=== PATIENT | female | born 1990 | race Caucasian/White ===

== ENCOUNTER 2022-07-24 15:11 | Emergency (ER) | payer OTHER ==
[~2022-07-24] VITALS: Ht 157.5 cm; Wt 81.6 kg
[~2022-07-24 15:11] MED LIST: PRENATAL1 TAB
[2022-07-24] MEDS ORDERED: CEPHALEXIN500 MG PO (20:36)
== END 2022-07-24 21:54 | disposition home or self-care (01) ==
LOC: ER 15:11
DX: O23.42 Unspecified infection of urinary tract in pregnancy, second trimester (principal); N39.0 Urinary tract infection, site not specified; B96.20 Unspecified Escherichia coli [E. coli] as the cause of diseases classified elsewhere; Z3A.18 18 weeks gestation of pregnancy; O34.12 Maternal care for benign tumor of corpus uteri, second trimester; Z20.822 Contact with and (suspected) exposure to COVID-19

== ENCOUNTER 2022-08-30 03:41 | Outpatient (CLI) | payer OTHER ==
[~2022-08-30 03:41] MED LIST changes: +CEPHALEXIN500 MG PO
== END 2022-08-30 10:51 | disposition home or self-care (01) ==
LOC: OBS/DEL 03:41
PROVIDERS: ATTEND Obstetrics & Gynecology
DX: O34.12 Maternal care for benign tumor of corpus uteri, second trimester (principal); Z3A.23 23 weeks gestation of pregnancy

== ENCOUNTER 2024-05-19 09:34 | Outpatient (CLI) | payer OTHER | END 2024-05-19 09:53 | disposition home or self-care (01) | LOC: SONOGRAMA 09:34 | PROVIDERS: ATTEND Obstetrics & Gynecology | DX: D25.9 Leiomyoma of uterus, unspecified (principal) ==

== ENCOUNTER 2024-12-02 08:30 | Inpatient (IN) | payer OTHER ==
[~2024-12-02] VITALS: Ht 160 cm; Wt 74.4 kg
[2024-12-02 10:16] VITALS: BP 100/60
[2024-12-02 10:21] VITALS: BP 109/73
[2024-12-02 10:39] LABS: URINE APPEARANCE Clear; URINE BILIRRUBIN Negative (NEGATIVE); URINE BLOOD Negative; URINE COLOR Yellow; URINE GLUCOSE Negative (NEGATIVE); URINE KETONE Negative (NEGATIVE); URINE LEUKOCYTE Moderate; URINE NITRATE Negative; URINE PROTEIN Negative (NEGATIVE); URINE UROBILINOGEN 0.2 E.U./dl
[2024-12-02 10:42] LABS: BASO % 0.6 % (0.1-1.2); EOS # 0.12 (0.04-0.54); EOS % 2.4 % (0.7-7.0); LYMPH # 1.41 (1.18-3.74); LYMPH % 28.5 % (19.3-53.1); MEAN PLATELET VOLUME 12.90 fl (9.4-12.4); MONO # 0.33 (0.24-0.82); MONO % 6.7 % (4.7-12.5); NEUT # 3.05 (1.56-6.13); NEUT % 61.6 % (34.0-71.1); RED CELL DISTRIBUTION WIDTH 13.8 % (11.6-14.4)
[2024-12-02 10:43] LABS: URINE BACTERIA 196.8 uL (0.0-1933); URINE EPITHELIAL CELLS 13.9 uL (0.0-38.8); URINE WBC 27.3 uL (0.0-23.2)
[2024-12-02 10:47] LABS: URINE CAST 0.00 uL (0.0-1.40); URINE RBC 1.1 uL (0.0-20.8)
[2024-12-02 11:11] LABS: INR 1.02
[2024-12-02 11:15] LABS: ALT/SGPT 26 U/L (12-78); AST/SGOT 16 U/L (15-37); BILIRUBIN TOTAL 0.43 mg/dL (0.3-1.2); BUN CREA RATIO 16 (7.0-25.0); CREATININE SERUM 0.56 mg/dL (0.55-1.02); GFR 123.19; GLOBULINA 4.1 G/DL (2.4-3.5); GLUCOSE FASTING 93 mg/dL (65-100); OSMOLALITY SERUM 280 MOSM/KG (275-295)
[2024-12-02 11:16] LABS: HCG QUANTITATIVE < 1 mUI/mL (1-3)
[2024-12-02 11:41] LABS: RH POSITIVE
[2024-12-08] MEDS ORDERED: THROMBIN,HU/FIBRINOGEN/CALCIUM 10 ML SYRINGE TOP ONE (13:00)
[2024-12-08] MEDS ORDERED: CEFAZOLIN SODIUM 1,000 MG VIAL IV ONE (13:00)
[2024-12-08] MEDS ORDERED: VASOPRESSIN 20 UNITS/ML VIAL IJ ONE (13:00)
[2024-12-08] MEDS ORDERED: VISTASEAL DUAL APPICATOR 1 EACH APPL TOP ONE (13:00)
[2024-12-08] MEDS ORDERED: TRANEXAMIC ACID 100MG/1ML (1000MG) AMPUL IV ONE (13:00)
[2024-12-08] MEDS ORDERED: METHYLENE BLUE 10MG/ML 10 ML AMPUL IV ONE (15:30)
[2024-12-08] MEDS ORDERED: RINGERS SOLUTION,LACTATED 1,000 ML IV SCH (17:00)
[2024-12-08] MEDS ORDERED: GABAPENTIN 300 MG CAPSULE PO SCH (17:01)
[2024-12-08] MEDS ORDERED: MORPHINE SULFATE 4 MG/ML VIAL IV ONE (17:15)
[2024-12-08] MEDS ORDERED: ACETAMINOPHEN 500 MG GEL..CAP PO SCH (18:00)
[2024-12-08] MEDS ORDERED: KETOROLAC TROMETHAMINE 30 MG VIAL IV SCH (18:00)
[2024-12-09 01:42] VITALS: BP 100/60
[2024-12-09 06:48] LABS: BASO % 0.3 % (0.1-1.2); EOS # 0.02 (0.04-0.54); EOS % 0.3 % (0.7-7.0); LYMPH # 1.14 (1.18-3.74); LYMPH % 16.8 % (19.3-53.1); MEAN PLATELET VOLUME 12.70 fl (9.4-12.4); MONO # 0.51 (0.24-0.82); MONO % 7.5 % (4.7-12.5); NEUT # 5.08 (1.56-6.13); NEUT % 74.8 % (34.0-71.1); RED CELL DISTRIBUTION WIDTH 13.9 % (11.6-14.4)
[2024-12-09 08:55] VITALS: BP 103/66
== END 2024-12-09 13:10 | disposition home or self-care (01) | DRG 743 ==
LOC: O/R 12-08 08:00 → OB/GYN 12-08 08:00
PROVIDERS: ADMIT Student in an Organized Health Care Education/Training Program; ATTEND Student in an Organized Health Care Education/Training Program
PROC: 0DNW4ZZ Release Peritoneum, Percutaneous Endoscopic Approach (ICD-10-PCS; 2024-12-08)
PROC: 0TN64ZZ Release Right Ureter, Percutaneous Endoscopic Approach (ICD-10-PCS; 2024-12-08)
PROC: 0UBC4ZZ Excision of Cervix, Percutaneous Endoscopic Approach (ICD-10-PCS; 2024-12-08)
PROC: 0UB44ZZ Excision of Uterine Supporting Structure, Percutaneous Endoscopic Approach (ICD-10-PCS; 2024-12-08)
PROC: 0UN94ZZ Release Uterus, Percutaneous Endoscopic Approach (ICD-10-PCS; 2024-12-08)
PROC: 8E0W4CZ Robotic Assisted Procedure of Trunk Region, Percutaneous Endoscopic Approach (ICD-10-PCS; 2024-12-08)
PROC: 3E1P88Z Irrigation of Female Reproductive using Irrigating Substance, Via Natural or Artificial Opening Endoscopic (ICD-10-PCS; 2024-12-08)
PROC: 0UB94ZZ Excision of Uterus, Percutaneous Endoscopic Approach (ICD-10-PCS; principal; 2024-12-08 16:45)
DX: D25.9 Leiomyoma of uterus, unspecified (principal); N93.9 Abnormal uterine and vaginal bleeding, unspecified; N94.6 Dysmenorrhea, unspecified; N80.3C3 Endometriosis of bilateral uterosacral ligament(s), unspecified depth; R10.2 Pelvic and perineal pain; N80.02 Deep endometriosis of the uterus
CPT/HCPCS: 58545; 50715; 58662; 58350; S2900